=== PATIENT | female | born 1970 | race Caucasian/White ===

== ENCOUNTER 2019-11-17 16:31 | Emergency (ER) | payer OTHER ==
[~2019-11-17] VITALS: Ht 162.6 cm; Wt 97.5 kg
[2019-11-17] MEDS ORDERED: CELEXA 20 MG TA20 MG PO (16:44)
[2019-11-17 16:52] LABS: URINE BILIRUBIN NEGATIVE (Negative); URINE BLOOD 3+ (Negative); URINE CLARITY SL CLOUDY; URINE COLOR YELLOW; URINE GLUCOSE-RANDOM NEGATIVE (Negative); URINE KETONES NEGATIVE (Negative); URINE LEUKOCYTES-REFLEX NEGATIVE (Negative); URINE NITRITE-REFLEX NEGATIVE (Negative); URINE PROTEIN TRACE (Negative); URINE UROBILINOGEN 0.2 E.U./dl (0.2-1.0)
[2019-11-17 17:07] LABS: ABSOLUTE BASOPHILS 0.1 thou/uL (0.0-0.2); ABSOLUTE EOSINOPHILS 0.5 thou/uL (0.0-0.7); ABSOLUTE LYMPHOCYTES 3.6 thou/uL (0.8-5.3); ABSOLUTE MONOCYTES 0.9 thou/uL (0.0-1.2); ABSOLUTE NEUTROPHILS 4.9 thou/uL (1.6-8.1); BASOPHILS 0.9 %; EOSINOPHILS 4.7 %; HEMATOCRIT 39.3 % (37.0-47.0); HEMOGLOBIN 13.7 gm/dL (12.0-15.0); LYMPHOCYTES 36.7 %; MCH 31.9 pg (26.0-34.0); MCHC 34.9 g/dL (28.0-37.0); MCV 91.4 fL (80.0-100.0); MONOCYTES 8.8 %; MPV 7.9 fl. (7.2-11.1); NUCLEATED RBCS 0 /100WBC; PLATELET COUNT* 305 thou/uL (150-400); POLYS 48.9 %; RDW-CV 12.5 % (10.5-14.5); WBC 9.9 thou/uL (4.0-11.0)
[2019-11-17 17:15] LABS: CALCIUM 8.6 mg/dL (8.5-10.1); CREATININE 0.7 mg/dL (0.6-1.3); POTASSIUM 4.1 mmol/L (3.5-5.1)
[2019-11-17 17:19] LABS: ALBUMIN 3.4 g/dL (3.4-5.0); TOTAL BILIRUBIN 0.2 mg/dL (<0.1-1.0); TOTAL PROTEIN 6.6 g/dL (6.4-8.2)
[2019-11-17 17:24] LABS: SQUAMOUS >10 Many /LPF (0-3)
[2019-11-17 17:25] LABS: AMORPHOUS URATES Many /LPF (None Seen); CASTS None Seen /LPF (None Seen); URINE RBC >20 Many /HPF (0-2); URINE WBC-REFLEX None Seen /HPF (0-5)
[2019-11-17 17:26] LABS: BACTERIA-REFLEX 1-9 Few /HPF (None Seen)
[2019-11-17] MEDS ORDERED: ONDANSETRON ODT4 MG PO (18:35)
[2019-11-17] MEDS ORDERED: LORCET 5-325 M1 EACH PO (18:35)
[2019-11-17 19:21] VITALS: BP 140/62
== END 2019-11-17 19:17 | disposition home or self-care (01) ==
LOC: M.ERS 16:31
PROVIDERS: Physician Assistant
DX: N20.0 Calculus of kidney (principal); E27.9 Disorder of adrenal gland, unspecified; Z90.710 Acquired absence of both cervix and uterus

== ENCOUNTER 2020-02-27 18:09 | Emergency (ER) | payer OTHER ==
[~2020-02-27] VITALS: Ht 160 cm; Wt 99.8 kg
[~2020-02-27 18:09] MED LIST: CELEXA 20 MG TA20 MG PO; LORCET 5-325 M1 EACH PO; ONDANSETRON ODT4 MG PO
[2020-02-27] MEDS ORDERED: CELEXA 20 MG TA20 MG PO (18:29)
[2020-02-27] MEDS ORDERED: ADDERALL 30 MG30 MG PO (18:29)
[2020-02-27] MEDS ORDERED: ZANAFLEX4 MG PO (19:52)
[2020-02-27] MEDS ORDERED: HYDROCODON-ACE1 EAC7 PO (19:52)
[2020-02-27] MEDS ORDERED: IBUPROFEN 800800 M1 PO (19:52)
[2020-02-27 19:58] VITALS: BP 141/68
== END 2020-02-27 19:58 | disposition home or self-care (01) ==
LOC: M.ERS 18:09
DX: S16.1XXA Strain of muscle, fascia and tendon at neck level, initial encounter (principal); S09.90XA Unspecified injury of head, initial encounter; Z90.710 Acquired absence of both cervix and uterus; Z79.899 Other long term (current) drug therapy; V49.49XA Driver injured in collision with other motor vehicles in traffic accident, initial encounter; Y93.89 Activity, other specified; Y92.410 Unspecified street and highway as the place of occurrence of the external cause; Y99.8 Other external cause status

== ENCOUNTER 2020-03-06 14:28 | Observation (INO) | payer OTHER ==
[~2020-03-06] VITALS: Ht 162.6 cm; Wt 100.0 kg
[~2020-03-06 14:28] MED LIST changes: +ADDERALL 30 MG30 MG PO; +HYDROCODON-ACE1 EAC7 PO; +IBUPROFEN 800800 M1 PO; +ZANAFLEX4 MG PO
[2020-03-06 14:39] VITALS: BP 126/88
[2020-03-06] MEDS ORDERED: BUSPIRONE HCL10 MG PO (14:41)
[2020-03-06 15:00] LABS: ABSOLUTE BASOPHILS 0.2 thou/uL (0.0-0.2); ABSOLUTE EOSINOPHILS 0.4 thou/uL (0.0-0.7); ABSOLUTE LYMPHOCYTES 3.6 thou/uL (0.8-5.3); ABSOLUTE MONOCYTES 0.6 thou/uL (0.0-1.2); ABSOLUTE NEUTROPHILS 6.5 thou/uL (1.6-8.1); BASOPHILS 1.4 %; EOSINOPHILS 3.3 %; HEMATOCRIT 43.5 % (37.0-47.0); HEMOGLOBIN 14.7 gm/dL (12.0-15.0); LYMPHOCYTES 31.7 %; MCHC 33.8 g/dL (28.0-37.0); MCV 91.7 fL (80.0-100.0); MONOCYTES 5.5 %; MPV 8.1 fl. (7.2-11.1); NUCLEATED RBCS 0 /100WBC; PLATELET COUNT* 329 thou/uL (150-400); POLYS 58.1 %; RBC 4.75 mil/uL (4.20-5.00); RDW-CV 13.2 % (10.5-14.5); WBC 11.2 thou/uL (4.0-11.0)
[2020-03-06 15:09] LABS: CALCIUM 9.2 mg/dL (8.5-10.1); CREATININE 0.6 mg/dL (0.6-1.3); POTASSIUM 3.8 mmol/L (3.5-5.1)
[2020-03-06 15:20] LABS: ALBUMIN 3.8 g/dL (3.4-5.0); TOTAL BILIRUBIN 0.3 mg/dL (<0.1-1.0); TOTAL PROTEIN 7.4 g/dL (6.4-8.2)
--- NOTE | 2020-03-06 15:59 | EKG ---
[place] [address] ELECTROCARDIOGRAM REPORT Name: SANCHEZ FERNANDEZ Room: [facility]#: [id number] Admission: 03/06/20 Attend Phys: Discharge: Date of : 74 Date of Service: 03/06/20 1438 Report #: [id number] THIS REPORT FOR: //name// [facility] ED Test Date: 2020-03-06 Test Time: 14:38:52 Pat Name: SANCHEZ FERNANDEZ Department: Room: Gender: Decal Decorator: : 1970 Requested By: Daniel Hussein Order Number: [id number] MD: Kwan Levin Measurements Intervals [place] Rate: 109 P: 34 [place]: 144 QRS: 47 QRSD: 76 T: 58 QT: 299 QTc: 403 Interpretive Statements Sinus tachycardia Baseline wander in lead(s) II,III,aVF,V1 No previous ECG available for comparison Electronically Signed On 03-06-2020 15:59:24 WATERPROOFER HELPER by Kwan Levin [email or web address] <ELECTRONICALLY SIGNED> By: Kwan Levin MD, [facility] 03/06/20 1559 1438 1438 Kwan Levin MD, FAC /EPI
[2020-03-06 23:30] VITALS: BP 111/65
[2020-03-06 23:45] VITALS: BP 1221/67
[2020-03-07 04:09] LABS: HEMATOCRIT 38.8 % (37.0-47.0); HEMOGLOBIN 13.2 gm/dL (12.0-15.0); MCH 31.4 pg (26.0-34.0); MCV 92.5 fL (80.0-100.0); MPV 8.4 fl. (7.2-11.1); RBC 4.2 mil/uL (4.20-5.00); WBC 10.5 thou/uL (4.0-11.0)
[2020-03-07 04:28] VITALS: BP 113/66
[2020-03-07 04:33] LABS: ANION GAP 9 mmol/L (7-16); BUN 10 mg/dL (7-18); CALCIUM 9.7 mg/dL (8.5-10.1); CHLORIDE 105 mmol/L (98-107); CHOLESTEROL 199 mg/dL (<200); CO2 27 mmol/L (21-32); CREATININE 0.6 mg/dL (0.6-1.3); GLUCOSE 92 mg/dL (70-99); HDL CHOLESTEROL 53 mg/dL (>40); LDL CHOLESTEROL 131 mg/dL (<100); MAGNESIUM 1.9 mg/dL (1.8-2.4); POTASSIUM 3.8 mmol/L (3.5-5.1); SODIUM 141 mmol/L (136-145); TC:HDL 3.8 Ratio (Not establshd); TRIGLYCERIDE 76 mg/dL (<150); VLDL 15 mg/dL (<40)
[2020-03-07 04:34] LABS: SERUM ASSESSMENT CLEAR
[2020-03-07 07:30] VITALS: BP 107/38
[2020-03-07 12:24] VITALS: BP 123/49
--- NOTE | 2020-03-07 13:34 | 2DMMODE ---
[place] [address] 2 D/M-MODE ECHOCARDIOGRAM Name: SANCHEZ FERNANDEZ Linette Room: [address] Sathish#: [id number] Admission: 03/06/20 Attend Phys: Roly Overton, Discharge: Date of : 74 Date of Service: 03/07/20 1334 Report #: [id number] THIS REPORT FOR: cc: FAM - No family physician/PCP FAM - No family physician/PCP Evans Field MD [facility] ~ APPROVED REPORT Study performed: 03/07/2020 10:19:31 EXAM: Comprehensive 2D, Doppler, and color-flow Echocardiogram Patient Location: In-Patient Room #: [facility] Status: routine BSA: 2.03 HR: 80 bpm BP: 113/66 mmHg Rhythm: NSR Other Information Study Quality: Good Indications Arrhythmia 2D Dimensions IVSd: 7.74 (7-11mm) LVOT Diam: 21.98 (18-24mm) LVDd: 50.94 mm PWd: 8.49 (7-11mm) Ascending Ao: 37.84 (22-36mm) LVDs: 29.68 (25-40mm) Aortic Root: 32.70 mm Volumes Left Atrial Volume (Systole) LA ESV Index: 25.30 mL/m2 Aortic Valve AoV Peak Andrew.: 1.20 m/s AO Peak Gr.: 5.74 mmHg LVOT Max P.45 mmHg AO Mean Gr.: 3.25 mmHg LVOT Mean P.97 mmHg LVOT Max V: 1.05 m/s AO V2 VTI: 25.37 cm LVOT Mean V: 0.63 m/s ABDULLAHI (VTI): 3.25 cm2 LVOT V1 VTI: 21.70 [place] [address] 2 D/M-MODE ECHOCARDIOGRAM Name: SANCHEZ FERNANDEZ Room: [address]#: [id number] Admission: 03/06/20 Attend Phys: Roly Overton, Discharge: Date of : 74 Date of Service: 03/07/20 1334 Report #: [id number] Mitral Valve E/A Ratio: 1.24 MV Decel. Time: 209.27 ms MV E Max Andrew.: 0.87 m/s MV PHT: 60.69 ms MVA (PHT): 3.63 cm2 TDI E/Lateral E': 5.80 E/Medial E': 5.44 Medial E' Andrew.: 0.16 m/s Lateral E' Andrew.: 0.15 m/s Pulmonary Valve PV Peak Andrew.: 0.95 m/s PV Peak Gr.: 3.60 mmHg Left Ventricle The left ventricle is normal size. There is normal LV segmental wall motion. There is normal left ventricular wall thickness. Left ventricular systolic function is normal. LVEF is 60-65%. The left ventricular diastolic function is normal. Right Ventricle The right ventricle is normal size. The right ventricular systolic function is normal. Atria The left atrium size is normal. The right atrium size is normal. Aortic Valve The aortic valve is normal in structure. No aortic regurgitation is present. There is no aortic valvular stenosis. Mitral Valve The mitral valve is normal in structure. Trace mitral regurgitation. No evidence of mitral valve stenosis. Tricuspid Valve The tricuspid valve is normal in structure. Trace tricuspid regurgitation. No pulmonary hypertension. Pulmonic Valve The pulmonary valve is normal in structure. There is no pulmonic valvular regurgitation[place] [address] 2 D/M-MODE ECHOCARDIOGRAM Name: SANCHEZ FERNANDEZ Room: [address]#: [id number] Admission: 03/06/20 Attend Phys: Roly Overton, Discharge: Date of : 74 Date of Service: 03/07/20 1334 Report #: [id number] The aortic root is normal in size. IVC is normal in size and collapses >50% with inspiration. Pericardium There is no pericardial effusion. <Conclusion> The left ventricle is normal size. There is normal left ventricular wall thickness. Left ventricular systolic function is normal. LVEF is 60-65%. The left ventricular diastolic function is normal. There is normal LV segmental wall motion. Trace mitral regurgitation. Trace tricuspid regurgitation. No pulmonary hypertension. IVC is normal in size and collapses >50% with inspiration. Of note the patient did have a short run of SVT during scanning. <ELECTRONICALLY SIGNED> By: Evans Field MD, FACC 03/07/20 1334 1334 1334 Evans Field MD, FACC /INF
--- NOTE | 2020-03-07 17:11 | CARDNUC ---
[place] [address] CARDIAC NUCLEAR IMAGING REPORT Name: SANCHEZ FERNANDEZ Room: [address] MFrancescoRFrancesco#: [id number] Admission: 03/06/20 Attend Phys: Roly Overton, Discharge: Date of : 74 Date of Service: 03/07/20 1710 Report #: [id number] THIS REPORT FOR: cc: FAM - No family physician/PCP FAM - No family physician/PCP Evans Field MD [facility] ~ APPROVED REPORT Imaging Protocol: Stress Tc-99mm Only Study performed: 03/06/2020 18:34:00 Indication: Palpitations Patient Location: In-Patient Room #: [facility] Stress Tech: Rhea uBsch Stress Nurse: Idania Carson RN Ht: 5 ft 4 in Wt: 218 lbs BSA: 2.03 m2 BMI: 37.41 Medical History Medical History: CAD non obstructive Medications: asa 325 Allergies: No known drug allergies Cardiac Risk Factors: Current Smoker Exercise History: Indeterminate Pharmacologic Stress Pharmacologic stress test was performed by injecting Regadenoson 0.4 mg IV push over 10-15 seconds immediately followed by the intravenous injection of 30.0 mCi of Tc-99m Sestamibi. Time of stress injection: 15:50 Date: 03/07/2020 Administration Route: IV Administration Site: Left AC Heart Rate at time of stress injection: 129 bpm. Gated Stress SPECT was performed 40 minutes after stress injection. The images were gated to evaluate regional wall motion and calculate left ventricular ejection fraction. Prone imaging was performed. Stress Test Details Stress Test: Pharmacologic stress testing performed using 0.4 mg of regadenoson per 5 mL given IV over 10 [place] [address] CARDIAC NUCLEAR IMAGING REPORT Name: SANCHEZ FERNANDEZ Room: [address] Sathish#: [id number] Admission: 03/06/20 Attend Phys: Roly Overton, Discharge: Date of : 74 Date of Service: 03/07/20 1710 Report #: [id number] Reason for pharmacologic stress test: physical limitation. HR Max Heart Rate (APMHR): 173 bpm Resting HR: 75 bpm Target HR (85% APMHR): 147 bpm Max HR Achieved: 129 bpm % of APMHR: 74 Recovery HR: 95 bpm BP Resting BP: 116/72 mmHg Max BP: 143/70 mmHg Recovery BP: 135/71 mmHg ECG Resting ECG: Sinus Rhythm Stress ECG: Sinus Tachycardia ST Change: None Arrhythmia: SVT Recovery ECG: Sinus Rhythm Recovery ST Change: None Recovery Arrhythmia: None Clinical Reason for Termination: Completed protocol The patient tolerated Lexiscan infusion without significant cardiac symptoms. Stress ECG Conclusion The baseline twelve-lead EKG shows sinus rhythm without significant ST segment abnormality. EKGs obtained during and post Lexiscan infusion show sinus rhythm and sinus tachycardia with no significant ST segment depression noted. There are occasional episodes of nonsustained supraventricular tachycardia noted with rates as fast as 160 bpm. These episodes lasted only 1 to 2 seconds at a time. No other significant arrhythmias were identified. Study Quality Study: Good Artifact: No artifact Study Data Post stress, the left ventricular ejection was 62%.. Perfusion Post-rest perfusion images show uniform uptake of the radioisotope. There were no defects to suggest [place] [address] CARDIAC NUCLEAR IMAGING REPORT Name: SANCHEZ FERNANDEZ Linette Room: [address]#: [id number] Admission: 03/06/20 Attend Phys: Roly Overton, Discharge: Date of : 74 Date of Service: 03/07/20 1710 Report #: [id number] Wall Motion Normal left ventricular wall motion. Nuclear Conclusion ECG Findings: negative for ischemia Clinical Findings: negative for ischemia Nuclear Findings: negative for ischemia Exercise Capacity: not assessed Left Ventricular Function: normal Risk Study: low Perfusion images show no defect to suggest infarct or ischemia. Left ventricular systolic function appears normal on gated study. This is a low risk study. Incidental note of some short runs of nonsustained SVT at a rate of 160 bpm lasting up to 2 seconds. <Conclusion> The baseline twelve-lead EKG shows sinus rhythm without significant ST segment abnormality. EKGs obtained during and post Lexiscan infusion show sinus rhythm and sinus tachycardia with no significant ST segment depression noted. There are occasional episodes of nonsustained supraventricular tachycardia noted with rates as fast as 160 bpm. These episodes lasted only 1 to 2 seconds at a time. No other significant arrhythmias were identified. <ELECTRONICALLY SIGNED> By: Evans Field MD, [facility] 03/07/201709 09 09 Evans Field MD, FACC /INF
[2020-03-07 17:52] VITALS: BP 123/49
== END 2020-03-07 18:48 | disposition home or self-care (01) ==
LOC: M.ERS 14:28 → M.TBA-ER 16:37 → M.2W 16:37
PROVIDERS: Emergency Medicine Emergency Medical Services; ADMIT Internal Medicine; ATTEND Internal Medicine
DX: R07.89 Other chest pain (principal); Z20.828 Contact with and (suspected) exposure to other viral communicable diseases; Z90.710 Acquired absence of both cervix and uterus

== ENCOUNTER 2020-03-17 12:49 | Emergency (ER) | payer OTHER ==
[~2020-03-17] VITALS: Ht 162.6 cm; Wt 98.9 kg
[~2020-03-17 12:49] MED LIST changes: +BUSPIRONE HCL10 MG PO
[2020-03-17 13:20] LABS: ABSOLUTE BASOPHILS 0.2 thou/uL (0.0-0.2); ABSOLUTE EOSINOPHILS 0.4 thou/uL (0.0-0.7); ABSOLUTE LYMPHOCYTES 3.3 thou/uL (0.8-5.3); ABSOLUTE MONOCYTES 0.9 thou/uL (0.0-1.2); ABSOLUTE NEUTROPHILS 5.4 thou/uL (1.6-8.1); BASOPHILS 1.8 %; EOSINOPHILS 4.2 %; HEMATOCRIT 43.4 % (37.0-47.0); HEMOGLOBIN 14.7 gm/dL (12.0-15.0); LYMPHOCYTES 32.5 %; MCH 31.1 pg (26.0-34.0); MCHC 33.9 g/dL (28.0-37.0); MCV 91.6 fL (80.0-100.0); MONOCYTES 8.7 %; MPV 8.3 fl. (7.2-11.1); NUCLEATED RBCS 0 /100WBC; PLATELET COUNT* 347 thou/uL (150-400); POLYS 52.8 %; RBC 4.74 mil/uL (4.20-5.00); RDW-CV 12.6 % (10.5-14.5); WBC 10.3 thou/uL (4.0-11.0)
[2020-03-17 13:21] LABS: CALCIUM 8.8 mg/dL (8.5-10.1); CREATININE 0.8 mg/dL (0.6-1.3); POTASSIUM 3.8 mmol/L (3.5-5.1)
[2020-03-17 13:26] LABS: ALBUMIN 3.5 g/dL (3.4-5.0); TOTAL BILIRUBIN 0.1 mg/dL (<0.1-1.0); TOTAL PROTEIN 7.3 g/dL (6.4-8.2)
[2020-03-17] MEDS ORDERED: VERAPAMIL ER180 M1 PO (13:45)
[2020-03-17 16:00] VITALS: BP 120/69
--- NOTE | 2020-03-18 10:30 | EKG ---
[place] [address] ELECTROCARDIOGRAM REPORT Name: SANCHEZ FERNANDEZ Room: [facility]#: [id number] Admission: 03/17/20 Attend Phys: Discharge: 03/17/20 Date of : 74 Date of Service: 03/17/20 1310 Report #: [id number] THIS REPORT FOR: //name// [facility] ED Test Date: 2020-03-17 Test Time: 13:10:32 Pat Name: SANCHEZ FERNANDEZ Department: Room: Gender: F Chief Knowledge Officer: ELIZABETH : 1970 Requested By: Daniel Hussein Order Number: [id number] MD: Kwan Levin Measurements Intervals [place] Rate: 105 P: 24 [place]: 132 QRS: 20 QRSD: 79 T: 54 QT: 332 QTc: 439 Interpretive Statements Sinus tachycardia Compared to ECG 03/17/2020 12:55:42 Intraventricular conduction delay no longer present rate has slowed Electronically Signed On 03-18-2020 10:30:48 WHARF HELPER by Kwan Levin [email or web address] <ELECTRONICALLY SIGNED> By: Kwan Levin MD, [facility] 03/18/20 1030 1310 1310 Kwan Levin MD, [facility] /EPI
--- NOTE | 2020-03-18 10:30 | EKG ---
[place] [address] ELECTROCARDIOGRAM REPORT Name: SANCHEZ FERNANDEZ Room: [facility] ([place] [place])#: [id number] Admission: 03/17/20 Attend Phys: Discharge: 03/17/20 Date of : 74 Date of Service: 03/17/20 1255 Report #: [id number] THIS REPORT FOR: //name// [facility] ED Test Date: 2020-03-17 Test Time: 12:55:42 Pat Name: SANCHEZ FERNANDEZ Department: Room: Gender: F Events Specialist: [facility] : 1970 Requested By: Chula Odonnell Order Number: [id number] MD: Kwan Levin Measurements Intervals [place] Rate: 186 P: 0 [place]: QRS: 5 QRSD: 135 T: 56 QT: 254 QTc: 447 Interpretive Statements Wide-QRS tachycardia Nonspecific intraventricular conduction delay Compared to ECG 03/06/2020 14:38:52 Intraventricular conduction delay now present Sinus tachycardia no longer present Electronically Signed On 03-18-2020 10:30:26 [employer]ILROAD CAR CLEANING SUPERVISOR by Kwan Levin [email or web address] <ELECTRONICALLY SIGNED> By: Kwan Levin MD, FAC 03/18/20 1030 1255 1255 Kwan Levin MD, [facility] /EPI
== END 2020-03-17 16:00 | disposition home or self-care (01) ==
LOC: M.ERS 12:49
PROVIDERS: Physician Assistant
DX: I47.1 Supraventricular tachycardia (principal); F17.210 Nicotine dependence, cigarettes, uncomplicated; Z90.710 Acquired absence of both cervix and uterus; Z87.442 Personal history of urinary calculi

== ENCOUNTER 2020-04-01 19:12 | Emergency (ER) | payer OTHER ==
[~2020-04-01] VITALS: Ht 160 cm; Wt 98.9 kg
[~2020-04-01 19:12] MED LIST changes: +VERAPAMIL ER180 M1 PO
[2020-04-01 19:22] LABS: URINE BILIRUBIN NEGATIVE (Negative); URINE BLOOD 1+ (Negative); URINE CLARITY CLEAR; URINE COLOR YELLOW; URINE GLUCOSE-RANDOM NEGATIVE (Negative); URINE KETONES NEGATIVE (Negative); URINE LEUKOCYTES-REFLEX NEGATIVE (Negative); URINE NITRITE-REFLEX NEGATIVE (Negative); URINE PROTEIN NEGATIVE (Negative); URINE UROBILINOGEN 0.2 E.U./dl (0.2-1.0)
[2020-04-01 19:31] LABS: SQUAMOUS 4-10 Moderate /LPF (0-3)
[2020-04-01 19:36] LABS: BACTERIA-REFLEX None Seen /HPF (None Seen); CASTS None Seen /LPF (None Seen); CRYSTALS None Seen /LPF (None Seen); MUCUS None Seen strn/LPF (None Seen); URINE RBC 3-10 Few /HPF (0-2); URINE WBC-REFLEX 0-5 Rare /HPF (0-5)
[2020-04-01 19:50] LABS: HEMOGLOBIN 13.3 gm/dL (12.0-15.0); MCH 30.5 pg (26.0-34.0); MCHC 33.2 g/dL (28.0-37.0); MCV 91.8 fL (80.0-100.0); MPV 7.9 fl. (7.2-11.1); NUCLEATED RBCS 0 /100WBC; PLATELET COUNT* 314 thou/uL (150-400); RBC 4.36 mil/uL (4.20-5.00); RDW-CV 12.8 % (10.5-14.5); WBC 11.9 thou/uL (4.0-11.0)
[2020-04-01 19:57] LABS: CALCIUM 8.1 mg/dL (8.5-10.1); CREATININE 0.7 mg/dL (0.6-1.3); POTASSIUM 4.4 mmol/L (3.5-5.1)
[2020-04-01 20:01] LABS: ALBUMIN 3.4 g/dL (3.4-5.0); TOTAL BILIRUBIN 0.1 mg/dL (<0.1-1.0); TOTAL PROTEIN 6.6 g/dL (6.4-8.2)
[2020-04-01 20:23] LABS: ABSOLUTE EOSINOPHILS 0.2 thou/uL (0.0-0.7); ABSOLUTE LYMPHOCYTES 5.4 thou/uL (0.8-5.3); ABSOLUTE MONOCYTES 1.2 thou/uL (0.0-1.2); ABSOLUTE NEUTROPHILS 5.1 thou/uL (1.6-8.1)
[2020-04-01 20:24] LABS: PLATELET ESTIMATE ADEQUATE
[2020-04-01] MEDS ORDERED: PERCOCET PO (21:07)
[2020-04-01] MEDS ORDERED: REGLAN 10 MG TA10 MG PO (21:07)
[2020-04-01 21:23] VITALS: BP 136/72
== END 2020-04-01 21:24 | disposition home or self-care (01) ==
LOC: M.ERS 19:12
PROVIDERS: Emergency Medicine; Nurse Practitioner Family
DX: N20.1 Calculus of ureter (principal); R11.2 Nausea with vomiting, unspecified; F17.210 Nicotine dependence, cigarettes, uncomplicated; Z90.710 Acquired absence of both cervix and uterus